=== PATIENT | female | born 1985 | race Caucasian/White ===

== ENCOUNTER 2017-07-14 19:11 | Emergency (ER) | payer SELFPAY ==
[2017-07-14] MEDS ORDERED: AMOXICILLIN & POT CLAVULANATE 875 MG TAB PO ONE (19:28)
--- NOTE | 2017-07-14 19:31 | ED.PDOC ---
History of Present Illness - General Time Seen by Provider: 07/14/17 19:28 Source: patient Exam Limitations: no limitations - History of Present Illness Initial Comments: he patient is presenting secondary to several weeks of left ear pain and decreased hearing out of that ear. No history of any recurrent infections. No history of any definite trauma. She has had sinus issues recently. No other new changes. She is hearing well out of the other ear. Timing/Duration: unsure Severity: mild Improving Factors: nothing Worsening Factors: nothing Associated Symptoms: denies symptoms Home Medications: Ambulatory Orders Amoxicillin & Pot Clavulanate [Augmentin Tab] 875 mg PO BID #20 tab 07/14/17 Lester/Poly/Hc Otic Susp [Cortisporin Otic Susp] 4 drop RIGHT_EAR Q6H #10 days Review of Systems - Review of Systems Constitutional: States: no symptoms reported EENTM: States: ear pain, nose congestion Respiratory: States: no symptoms reported Cardiology: States: no symptoms reported Gastrointestinal/Abdominal: States: no symptoms reported Genitourinary: States: no symptoms reported Musculoskeletal: States: no symptoms reported Skin: States: no symptoms reported Neurological: States: no symptoms reported Endocrine: States: no symptoms reported All other Systems: No Change from Baseline Physical Exam - Physical Exam General Appearance: Alert, Comfortable, No apparent distress Eye Exam: bilateral normal Ears, Nose, Throat: normal pharynx, nasal congestion, other - he right earhas a perforation at the top of the eardrum. The ear canal also appears to be mildly irritated itself. No significant discharge however.she does also have decreased hearing on the right side. 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 The patient does appear to have a mild otitis externa as well as a small eardrum perforation at the top of the right eardrum. The patient is going to be placed on Augmentin twice a day for 10 days and is going to be placed on Cortisporin Otic drops for 7 days. She needs to obtain a follow-up appointment with ear nose and throat in approximately 3 weeks for reevaluation of the punctured tympanic membrane. ER warnings are given for any significant worsening. Motrin can be used for discomfort. Departure - Departure Clinical Impression: Otitis externa Qualifiers: Otitis externa type: unspecified type Chronicity: acute Laterality: right Qualified Code(s): H60.501 - Unspecified acute noninfective otitis externa, right ear Otitis media Qualifiers: Otitis media type: unspecified Chronicity: acute Disposition: Discharge to Home or Self Care Condition: Fair Instructions: DI for Otitis Externa, Middle Ear Infection Diet: regular diet Activity: increase activity as tolerated Prescriptions: Amoxicillin & Pot Clavulanate [Augmentin Tab] 875 mg PO BID #20 tab Lester/Poly/Hc Otic Susp [Cortisporin Otic Susp] 4 drop RIGHT_EAR Q6H #10 days Home Medications: Ambulatory Orders Amoxicillin & Pot Clavulanate [Augmentin Tab] 875 mg PO BID #20 tab 07/14/17 Lester/Poly/Hc Otic Susp [Cortisporin Otic Susp] 4 drop RIGHT_EAR Q6H #10 days Additional Instructions: the patient's a 31-year-old female presenting to the emergency room secondary to decreased hearing and increased pain in the right ear for the last couple of weeks. The patient does appear to have a mild otitis externa as well as a small eardrum perforation at the top of the right eardrum. The patient is going to be placed on Augmentin twice a day for 10 days and is going to be placed on Cortisporin Otic drops for 7 days. She needs to obtain a follow-up appointment with ear nose and throat in approximately 3 weeks for reevaluation of the punctured tympanic membrane. ER warnings are given for any significant worsening. Motrin can be used for discomfort.
[2017-07-14 19:45] VITALS: BP 152/94; TEMP 98.2; O2SAT 99
== END 2017-07-14 19:49 | disposition home or self-care (01) ==
LOC: ER 19:11
DX: H60.501 Unspecified acute noninfective otitis externa, right ear (principal)

== ENCOUNTER 2018-09-04 14:48 | Emergency (ER) | payer SELFPAY ==
[2018-09-04 15:11] VITALS: BP 145/86; TEMP 98.5; O2SAT 98
--- NOTE | 2018-09-04 15:25 | ED.PDOC ---
History of Present Illness - General Chief Complaint: Respiratory Problem Stated Complaint: cough and congestion Time Seen by Provider: 09/04/18 15:22 Source: patient Exam Limitations: no limitations - History of Present Illness Initial Comments: the patient is a 32-year-old female presenting to emergency room with her daughters secondary to what appears to be the flu. Her apparently has tested positive for the flu a few days ago. She has some body aches and low- grade fevers and headache and a mild sore throat. Timing/Duration: 24 hours Severity: moderate Improving Factors: nothing Worsening Factors: nothing Associated Symptoms: fever/chills, headaches, malaise Allergies/Adverse Reactions: Allergies NO KNOWN ALLERGY Allergy (Verified 09/04/18 15:11) Home Medications: Ambulatory Orders Amoxicillin & Pot Clavulanate [Augmentin Tab] 875 mg PO BID #20 tab 07/14/17 Lester/Poly/Hc Otic Susp [Cortisporin Otic Susp] 4 drop RIGHT_EAR Q6H #10 days 07/14/17 Oseltamivir Capsule [Tamiflu] 75 mg PO BID 5 Days #10 capsule 09/04/18 Review of Systems - Review of Systems Constitutional: States: fever, malaise EENTM: States: nose congestion, throat pain Respiratory: States: no symptoms reported Cardiology: States: no symptoms reported Gastrointestinal/Abdominal: States: nausea - mild Genitourinary: States: no symptoms reported Musculoskeletal: States: other - mild body aches Skin: States: no symptoms reported Neurological: States: headache - mild Endocrine: States: no symptoms reported All other Systems: No Change from Baseline Past Medical History (General) - Patient Medical History Hx Asthma: No Hx Diabetes: No Hx Renal Disease: No Surgical History: no surgical history - Vaccination History Hx Influenza Vaccination: No - Social History Hx Tobacco Use: No Hx Alcohol Use: No - Female History Patient : No Family Medical History - Family History Mother Family History: Unknown Physical Exam - Physical Exam General Appearance: Alert, Comfortable, No apparent distress Eye Exam: bilateral normal Ears, Nose, Throat: hearing grossly normal, nasal congestion, pharyngeal erythema Neck: full range of motion Respiratory: no respiratory distress, no accessory muscle use Cardiovascular/Chest: no edema Rectal Exam: deferred Extremity: normal range of motion, normal inspection, no pedal edema Neurologic: alert, normal mood/affect, oriented x 3 Skin Exam: normal color Comments: Vital Signs - 24 hr 09/04/18 15:00 Temperature 98.5 F Pulse Rate [ 76 pulse ox] Respiratory 20 Rate Blood Pressure 145/86 [Left Arm] O2 Sat by Pulse 98 Oximetry Progress - Progress Progress: 09/04/18 15:24 the patient is a 32-year-old female presenting to emergency room with what appears to be the flu. She has a close contact that has tested positive in the same household. The patient will be treated with Tamiflu twice daily for 5 days. She needs to keep herself well hydrated and use Motrin as needed to control symptoms. ER warnings were given for any significant worsening. Departure - Departure Clinical Impression: Influenza A Disposition: Discharge to Home or Self Care Condition: Fair Departure Forms: ED Discharge - Pt. Copy, Patient Portal Self Enrollment Instructions: Flu, Adult (DC) Diet: regular diet Activity: increase activity as tolerated Prescriptions: Oseltamivir Capsule [Tamiflu] 75 mg PO BID 5 Days #10 capsule Home Medications: Ambulatory Orders Amoxicillin & Pot Clavulanate [Augmentin Tab] 875 mg PO BID #20 tab 07/14/17 Lester/Poly/Hc Otic Susp [Cortisporin Otic Susp] 4 drop RIGHT_EAR Q6H #10 days 07/14/17 Oseltamivir Capsule [Tamiflu] 75 mg PO BID 5 Days #10 capsule 09/04/18 Additional Instructions: the patient is a 32-year-old female presenting to emergency room with what appears to be the flu. She has a close contact that has tested positive in the same household. The patient will be treated with Tamiflu twice daily for 5 days. She needs to keep herself well hydrated and use Motrin as needed to control symptoms. ER warnings were given for any significant worsening.
== END 2018-09-04 15:35 | disposition home or self-care (01) ==
LOC: ER 14:48
DX: J10.1 Influenza due to other identified influenza virus with other respiratory manifestations (principal)

== ENCOUNTER → 2019-11-21 | Outpatient (CLI) | payer OTHER | LOC: LAB.O 09:40 | PROVIDERS: ATTEND Physician Assistant | DX: R21 Rash and other nonspecific skin eruption (principal) ==